=== PATIENT | female | born 1965 | race Caucasian/White ===

== ENCOUNTER 2017-12-01 12:36 | Emergency (ER) | payer SELFPAY ==
[~2017-12-01] VITALS: Ht 149.9 cm; Wt 50.0 kg
[2017-12-01] MEDS ORDERED: TETRACAINE 0.5% OPHTH DROPS 4ML OP ONE (15:45)
[2017-12-01] MEDS ORDERED: METOCLOPRAMIDE HCL 10MG TABLET PO ONE (16:15)
[2017-12-01] MEDS ORDERED: DIPHENHYDRAMINE 25MG CAPSULE PO ONE (16:15)
[2017-12-01] MEDS ORDERED: ACETAMINOPHEN 325MG TABLET PO ONE (16:15)
[2017-12-01] MEDS ORDERED: FLUORESCEIN SODIUM 1MG/STRIP OP ONE (17:30)
[2017-12-01 19:52] VITALS: BP 140/73
== END 2017-12-01 19:54 | disposition home or self-care (01) ==
LOC: ER 12:36
DX: R51 Headache (principal); E11.9 Type 2 diabetes mellitus without complications; E78.00 Pure hypercholesterolemia, unspecified
CPT/HCPCS: 99284; J8597; Q0163